=== PATIENT | female | born 1980 | race Native Hawaiian/Other Pacific Islander ===

== ENCOUNTER 2016-07-26 06:08 | Emergency (ER) | payer OTHER ==
[~2016-07-26] VITALS: Ht 167.6 cm; Wt 106.6 kg
[~2016-07-26 06:08] MED LIST: PAXIL20 MG PO; ULTRAM50 MG PO
[2016-07-26 06:18] VITALS: TEMP 97.9
[2016-07-26 07:34] VITALS: BP 149/92
[2016-07-26] MEDS ORDERED: KETO10TA34 PO (07:36)
[2016-07-26] MEDS ORDERED: ONDA4TAB3 PO (07:36)
== END 2016-07-26 07:36 | disposition home or self-care (01) ==
LOC: ED 06:08
DX: G43.909 Migraine, unspecified, not intractable, without status migrainosus (principal)
CPT/HCPCS: 96361; 96374; 96375; 99284; J1100; J1200; J1885; J2550

== ENCOUNTER 2016-10-12 17:40 | Emergency (ER) | payer OTHER ==
[~2016-10-12] VITALS: Ht 167.6 cm; Wt 117.0 kg
[~2016-10-12 17:40] MED LIST changes: +KETO10TA34 PO; +ONDA4TAB3 PO
[2016-10-12 21:04] VITALS: BP 110/88; TEMP 98.6
== END 2016-10-12 21:06 | disposition home or self-care (01) ==
LOC: ED 17:40
DX: G43.909 Migraine, unspecified, not intractable, without status migrainosus (principal)
CPT/HCPCS: 36415; 96361; 96365; 96375; 99284; J1100; J1885; J2550

== ENCOUNTER 2018-09-02 20:12 | Outpatient (CLI) | payer OTHER | END 2018-09-02 20:15 | disposition short-term general hospital (02) | LOC: AMB 20:12 | DX: M54.89 Other dorsalgia (principal); V49.9XXA Car occupant (driver) (passenger) injured in unspecified traffic accident, initial encounter; Y93.89 Activity, other specified; Y92.89 Other specified places as the place of occurrence of the external cause | CPT/HCPCS: A0425; A0429 ==

== ENCOUNTER 2018-09-02 20:24 | Emergency (ER) | payer OTHER ==
[~2018-09-02] VITALS: Ht 167.6 cm; Wt 115.2 kg
[2018-09-02 20:35] VITALS: TEMP 97.4
[2018-09-02 23:13] VITALS: BP 116/78
== END 2018-09-02 23:19 | disposition home or self-care (01) ==
LOC: ED 20:24
DX: M43.6 Torticollis (principal); M62.838 Other muscle spasm; M79.10 Myalgia, unspecified site; V49.50XA Passenger injured in collision with unspecified motor vehicles in traffic accident, initial encounter
CPT/HCPCS: 96372; 99283; J1885

== ENCOUNTER 2018-12-04 22:13 | Emergency (ER) | payer OTHER ==
[~2018-12-04] VITALS: Ht 167.6 cm; Wt 120.2 kg
[2018-12-04 23:02] VITALS: BP 135/82; TEMP 98.6
== END 2018-12-04 23:02 | disposition home or self-care (01) ==
LOC: ED 22:13
DX: K09.8 Other cysts of oral region, not elsewhere classified (principal)
CPT/HCPCS: 99283

== ENCOUNTER 2019-07-27 22:15 | Emergency (ER) | payer OTHER ==
[~2019-07-27] VITALS: Ht 167.6 cm; Wt 120.2 kg
[2019-07-27 22:20] VITALS: TEMP 97.3
[2019-07-27 23:47] LABS: PLATELET COUNT 212 K/uL (152-353)
[2019-07-27 23:49] LABS: POTASSIUM 3.7 mmol/L (3.6-5.2)
[2019-07-28 01:40] VITALS: BP 114/76
== END 2019-07-28 01:42 | disposition home or self-care (01) ==
LOC: ED 22:15
PROVIDERS: Family Medicine
DX: G43.909 Migraine, unspecified, not intractable, without status migrainosus (principal); R11.2 Nausea with vomiting, unspecified
CPT/HCPCS: 80053; 85027; 96372; 96374; 96375; 99284; J1885; J2175; J2405; J3030

== ENCOUNTER 2019-10-22 11:20 | Outpatient (CLI) | payer OTHER | END 2019-10-22 20:10 | disposition home or self-care (01) | LOC: RAD 11:20 | DX: R05 Cough (principal) ==

== ENCOUNTER 2021-03-03 10:54 | Outpatient (CLI) | payer OTHER ==
[~2021-03-03] VITALS: Ht 167.6 cm; Wt 111.1 kg
== END 2021-03-03 19:31 | disposition home or self-care (01) ==
LOC: INF 10:54
PROVIDERS: ATTEND Internal Medicine Endocrinology, Diabetes & Metabolism
DX: Z23 Encounter for immunization (principal); U07.1 COVID-19
CPT/HCPCS: 96365; M0244

== ENCOUNTER 2021-03-03 13:56 | Observation (INO) | payer OTHER ==
[~2021-03-03] VITALS: Ht 167.6 cm; Wt 109.0 kg
[2021-03-03] VITALS (9 sets, daily range): BP systolic 113–130; BP diastolic 54–90; TEMP 98.2–99
[2021-03-03 15:07] LABS: PLATELET COUNT 205 K/uL (152-353)
[2021-03-03 15:16] LABS: POTASSIUM 3.3 mmol/L (3.6-5.2)
[2021-03-04] VITALS (8 sets, daily range): BP systolic 95–131; BP diastolic 50–73; TEMP 97.6–98.9; Ht 167.6 cm; Wt 109.0 kg
[2021-03-04 05:02] LABS: PLATELET COUNT 201 K/uL (152-353)
[2021-03-04 05:24] LABS: POTASSIUM 3.7 mmol/L (3.6-5.2)
--- NOTE | 2021-03-04 11:25 | NUR ---
PT LAYING IN BED AWAKE AND ALERT. SPOKE WITH PTS BY TELEPHONE FOR UPDATE ON PT. PT C/O NAUSEA AND FEELING PAIN ALL OVER BODY. AWAITING TO OBTAIN AN ORDER FROM HCP, HCP CURRENTLY CONSULTING WITH OTHER HCP FOR UPDATE ON PTS ON FLOOR. NO NAD NOTED. REQUESTED THAT BRING PTS HOME MEDS.
--- NOTE | 2021-03-04 13:49 | NUR ---
PT CONTINUES TO HAVE C/O N/V AND PAIN, GENERALIZED PAIN, R/T DX. ADMINISTERED MEDS ORERED FOR PAIN AND N/V.
--- NOTE | 2021-03-04 16:27 | NUR ---
PT LAYING IN BED TALKING ON CELL PHONE. DENIES ANY PAIN OR N/V AT CURRENT TIME. NO NAD NOTED. PT CONTINUES TO SAT AT 97% ON ROOM AIR.
--- NOTE | 2021-03-04 20:51 | NUR ---
ER PHYSICIAN- DR MARSHALL NOTIFIED OF PT'S FIBROMYALGIA PAIN AND PT STATES "I NORMALLY TAKE PERCOCET FOR MY PAIN AT HOME". PHYSICIAN ORDERED ONE TIME DOSE OF PERCOCET 10/325 MG. ORDER NOTED AND CARRIED OUT.
[2021-03-05 04:26] VITALS: BP 126/71; TEMP 97.7
[2021-03-05 08:00] VITALS: BP 128/67; TEMP 97.9
[2021-03-05 09:56] VITALS: BP 128/67; TEMP 97.9
[2021-03-05 12:00] VITALS: BP 131/71; TEMP 97.7
== END 2021-03-05 15:10 | disposition home or self-care (01) ==
LOC: ED 13:56 → MED/SURG 18:08
PROVIDERS: Emergency Medicine Emergency Medical Services; ADMIT Internal Medicine Endocrinology, Diabetes & Metabolism; ATTEND Internal Medicine Endocrinology, Diabetes & Metabolism
DX: U07.1 COVID-19 (principal); M79.7 Fibromyalgia; R00.1 Bradycardia, unspecified; R05 Cough; R50.9 Fever, unspecified; R68.83 Chills (without fever); M79.10 Myalgia, unspecified site; R43.0 Anosmia; R43.2 Parageusia; F32.9 Major depressive disorder, single episode, unspecified; F41.9 Anxiety disorder, unspecified; Z23 Encounter for immunization
CPT/HCPCS: 36415; 80053; 84439; 84443; 84484; 85027; 93005; 96360; 96365; 96374; 96375; 99220; 99284; G0378; J0461; J1100; J1885; J2405; M0244

== ENCOUNTER 2021-03-10 16:33 | Outpatient (CLI) | payer OTHER | END 2021-03-10 20:45 | disposition home or self-care (01) | LOC: RAD 16:33 | PROVIDERS: ATTEND Nurse Practitioner Family | DX: J20.9 Acute bronchitis, unspecified (principal) ==

== ENCOUNTER 2021-03-17 09:09 | Emergency (ER) | payer OTHER ==
[~2021-03-17] VITALS: Ht 167.6 cm; Wt 108.9 kg
[2021-03-17 10:30] LABS: PLATELET COUNT 265 K/uL (152-353)
[2021-03-17 10:56] LABS: POTASSIUM 3.7 mmol/L (3.6-5.2)
[2021-03-17 14:28] VITALS: BP 115/70; TEMP 98
== END 2021-03-17 14:28 | disposition home or self-care (01) ==
LOC: ED 09:09
PROVIDERS: Emergency Medicine Emergency Medical Services
DX: E86.0 Dehydration (principal); Z86.16 Personal history of COVID-19
CPT/HCPCS: 36415; 80048; 81000; 83735; 85027; 93005; 96360; 99284

== ENCOUNTER 2021-03-19 14:56 | Outpatient (CLI) | payer OTHER ==
[2021-03-19 15:13] LABS: PLATELET COUNT 254 K/uL (152-353)
[2021-03-19 15:38] LABS: POTASSIUM 3.7 mmol/L (3.6-5.2)
== END 2021-03-19 20:15 | disposition home or self-care (01) ==
LOC: LAB 14:56
PROVIDERS: ATTEND Nurse Practitioner Family
DX: R06.00 Dyspnea, unspecified (principal); R55 Syncope and collapse; R53.83 Other fatigue
CPT/HCPCS: 36415; 80053; 82306; 82607; 82728; 82746; 83540; 83550; 83735; 84439; 84443; 85027; 85379

== ENCOUNTER 2023-01-14 18:21 | Emergency (ER) | payer OTHER ==
[~2023-01-14] VITALS: Ht 167.6 cm; Wt 111.1 kg
[2023-01-14 18:22] VITALS: BP 144/82; TEMP 98.6
[2023-01-14 18:52] LABS: PLATELET COUNT 273 K/uL (152-353)
== END 2023-01-14 20:52 | disposition home or self-care (01) ==
LOC: ED 18:21
PROVIDERS: Family Medicine
DX: R07.9 Chest pain, unspecified (principal); F41.9 Anxiety disorder, unspecified
CPT/HCPCS: 80053; 84484; 85027; 93005; 99284